=== PATIENT | female | born 1995 | race Caucasian/White ===

== ENCOUNTER 2017-02-17 11:44 | Emergency (ER) | payer MEDICAID ==
[2017-02-17] MEDS ORDERED: Sodium Chloride 0.9% 1,000 ML IV ONE (12:20)
--- NOTE | 2017-02-17 12:26 | C.PDOC ---
History Of Present Illness Patient is a 21 year old female who presents to the ER with a complaint of multiple episodes of vomiting, diarrhea, and abdominal pain since 8am this morning. Patient reports eating out at a restaurant last night. Denies any sick contact, fever, or back pain. Time Seen by Provider: 02/17/17 12:00 Chief Complaint (Nursing): Abdominal Pain History Per: Patient History/Exam Limitations: no limitations Onset/Duration Of Symptoms: Hrs (Since AM) Current Symptoms Are (Timing): Still Present Context: Food Location Of Pain/Discomfort: Other (Lower) Associated Symptoms: Vomiting, Diarrhea, Other (Abdominal pain). denies: Fever Past Medical History Reviewed: Historical Data, Nursing Documentation, Vital Signs Vital Signs: Last Vital Signs Temp 98.6 F 02/17/17 14:28 Pulse 87 02/17/17 14:28 Resp 18 02/17/17 14:28 BP 110/66 02/17/17 14:28 Pulse Ox 99 02/17/17 14:28 - Medical History PMH: No Chronic Diseases Surgical History: Appendectomy Family History: States: Unknown Family Hx - Social History Hx Tobacco Use: No Hx Alcohol Use: Yes Hx Substance Use: No - Immunization History Hx Tetanus Toxoid Vaccination: No Hx Influenza Vaccination: No Hx Pneumococcal Vaccination: No Review Of Systems Constitutional: Negative for: Fever Gastrointestinal: Positive for: Vomiting, Abdominal Pain (Lower), Diarrhea Musculoskeletal: Negative for: Back Pain Physical Exam - Physical Exam Appears: Well, Non-toxic Skin: Normal Color, Warm, Dry, No Rash Head: Atraumatic, Normacephalic Eye(s): bilateral: Normal Inspection Oral Mucosa: Moist Neck: Normal ROM, Supple Chest: Symmetrical, No Tenderness Cardiovascular: Rhythm Regular, No Friction Rub, No Murmur Respiratory: Normal Breath Sounds, No Rales, No Rhonchi, No Wheezing Gastrointestinal/Abdominal: Bowel Sounds (active), Soft, No Tenderness Back: Normal Inspection, No CVA Tenderness Extremity: Normal ROM, No Swelling Neurological/Psych: Oriented x3, Normal Speech, Normal Cognition, Normal Motor Gait: Steady ED Course And Treatment - Laboratory Results Result Diagrams: 02/17/17 12:55 02/17/17 12:55 O2 Sat by Pulse Oximetry: 100 (Room air) Pulse Ox Interpretation: Normal Progress Note: Blood work and urinalysis ordered. IV fluids, toradol IVP, and zofran IVP ordered. Medical Decision Making Medical Decision Making: On re-exam, the patient reports improvement of symptoms. Lungs are CTA, heart is RRR, Abdomen is soft, non-tender and tolerating PO well. ambulatory in the ED with steady gait. Follow up with the medical doctor within 1-2 days. return if worsened. Disposition - Disposition Referrals: Kumar Dickey [Medical Doctor] - Disposition: HOME/ ROUTINE Disposition Time: 14:12 Condition: IMPROVED Additional Instructions: Follow up with the medical doctor within 1-2 days. return if worsened. Prescriptions: Ondansetron ODT [Zofran ODT] 1 odt PO BID PRN #10 odt PRN Reason: Nausea/Vomiting Instructions: Gastroenteritis (ED) - Clinical Impression Clinical Impression: Gastroenteritis - Scribe Statement The provider has reviewed the documentation as recorded by the Scribjaciel Rios All medical record entries made by the Scribe were at my direction and personally dictated by me. I have reviewed the chart and agree that the record accurately reflects my personal performance of the history, physical exam, medical decision making, and the department course for this patient. I have also personally directed, reviewed, and agree with the discharge instructions and disposition.
[2017-02-17] MEDS ORDERED: Sodium Chloride 0.9% 250 ML IV ONE (12:43)
[2017-02-17 13:07] LABS: BASO # 0.1 K/uL (0.0-0.2); BASO % 0.6 % (0.0-2.0); EOS % 0.3 % (0.0-4.0); HEMATOCRIT 35.8 % (34.0-47.0); LYMPH # 1.1 K/uL (1.0-4.3); LYMPH % 7.2 % (20.0-40.0); MEAN CELL VOLUME 82.1 fL (81.0-99.0); MEAN CORPUSCULAR HEMOGLOBIN 26.6 pg (27.0-31.0); MEAN CORPUSCULAR HGB CONC 32.3 g/dL (33.0-37.0); MEAN PLATELET VOLUME 8.9 fL (7.2-11.7); MONO # 0.6 K/uL (0.0-0.8); PLATELET COUNT 300 K/uL (130-400); RED CELL DISTRIBUTION WIDTH 13.6 % (11.5-14.5); WHITE BLOOD COUNT 14.9 K/uL (4.8-10.8)
[2017-02-17 13:11] LABS: CHLORIDE 103 mmol/L (98-107); POTASSIUM 4.1 mmol/L (3.6-5.2); SODIUM 141 mmol/L (132-148)
[2017-02-17 13:14] LABS: ALB/GLOB RATIO 1.2 (1.0-2.1); ALKALINE PHOSPHATASE 44 U/L (38-126); ALT/SGPT 8 U/L (9-52); AST/SGOT 18 U/L (14-36); BILIRUBIN,TOTAL < 0.1 mg/dL (0.2-1.3); BLOOD UREA NITROGEN 10 mg/dL (7-17); CALCIUM 8.6 mg/dl (8.6-10.4); CARBON DIOXIDE 22 mmol/L (22-30); GFR AFRICAN-AMERICAN > 60; GLUCOSE,RANDOM 94 mg/dL (65-105); TOTAL PROTEIN 7.7 g/dL (6.3-8.3)
[2017-02-17 13:19] LABS: RBC URINE 2 /hpf (0-3); URINE BILIRUBIN NEGATIVE (NEGATIVE); URINE BLOOD NEGATIVE (NEGATIVE); URINE COLOR Yellow (YELLOW); URINE GLUCOSE (UA) NORMAL (Normal); URINE KETONE NEGATIVE (NEGATIVE); URINE LEUKOCYTE ESTERASE TRACE Leu/uL (Negative); URINE PROTEIN NEGATIVE (NEGATIVE); URINE UROBILINOGEN NORMAL mg/dL (0.2-1.0); WBC URINE 7 /hpf (0-5)
[2017-02-17 13:29] LABS: EOSINOPHIL 1 % (0-4); NEUTROPHIL 88 % (50-75); TOTAL CELLS COUNTED 100
[2017-02-17 14:30] VITALS: BP 110/66; PULSE 87; RESP 18; TEMP 98.6
[2017-02-17 18:11] VITALS: O2SAT 100
== END 2017-02-17 14:28 | disposition home or self-care (01) ==
LOC: C.ER 11:44
DX: K52.9 Noninfective gastroenteritis and colitis, unspecified (principal)
CPT/HCPCS: 80053; 81001; 83690; 84703; 85025; 87045; 87177; 87209; 87230; 96361; 96374; 96375; 99284; J1885; J2405; J7040

== ENCOUNTER 2017-04-11 16:33 | Emergency (ER) | payer MEDICAID ==
[2017-04-11 16:41] VITALS: TEMP 98.6; O2SAT 98
[2017-04-11] MEDS ORDERED: Albuterol-Ipratrop 3 mg / 0.5 (3 ml) UD IH STA (17:03)
--- NOTE | 2017-04-11 17:03 | C.PDOC ---
Time Seen by Provider: 04/11/17 16:50 Chief Complaint (Nursing): Shortness Of Breath Past Medical History Vital Signs: Last Vital Signs Temp 98.6 F 04/11/17 16:40 Pulse 104 H 04/11/17 16:40 Resp 20 04/11/17 16:40 BP 135/91 H 04/11/17 16:40 Pulse Ox 98 04/11/17 16:40 - Medical History PMH: Asthma Denies: Chronic Kidney Disease Surgical History: Appendectomy Family History: States: Unknown Family Hx - Social History Hx Tobacco Use: No Hx Alcohol Use: Yes Hx Substance Use: No - Immunization History Hx Tetanus Toxoid Vaccination: No Hx Influenza Vaccination: No Hx Pneumococcal Vaccination: No ED Course And Treatment O2 Sat by Pulse Oximetry: 98
[2017-04-11] MEDS ORDERED: Albuterol-Ipratrop 3 mg / 0.5 (3 ml) UD ONE ×2 (17:07→17:49)
--- NOTE | 2017-04-11 17:09 | C.PDOC ---
History Of Present Illness 21 year old female presents to the ED with complaints of asthma exacerbation for approximately two weeks, also intermittent chronic pain of the right wrist. Patient states initially experienced relief with albuterol treatments but now needs more frequent use for relief and takes medication for seasonal allergies. She also notes she sprained her wrist six months ago with occasional pain. Patient states she currently feels tight from asthma exacerbation and wrist pain is exacerbated when hyperflexed. She denies any recent trauma, lip or tongue swelling, or fever. Time Seen by Provider: 04/11/17 16:50 Chief Complaint (Nursing): Shortness Of Breath History Per: Patient History/Exam Limitations: no limitations Onset/Duration Of Symptoms: Intermittent Episodes (6 months of occasional right wrist pain ), Persistent (2 weeks of asthma exacerbation) Current Symptoms Are (Timing): Still Present Associated Symptoms: denies: Dyspnea, Cough, Fever, Chest Pain Recent travel outside of the [place]: No - Asthma History Current Asthma Therapy: Albuterol PMH Reviewed: Historical Data, Nursing Documentation, Vital Signs - Medical History PMH: Resp Disorders, MS Disorders Denies: Neuro Disorder, HEENT Problems, GI Disorders - Family History Family History: States: Unknown Family Hx - Immunization History Hx Tetanus Toxoid Vaccination: No Hx Influenza Vaccination: No Hx Pneumococcal Vaccination: No Review Of Systems Constitutional: Negative for: Fever, Chills, Sweats Cardiovascular: Positive for: Other (chest described as feeling tight ). Negative for: Chest Pain, Palpitations Respiratory: Negative for: Cough, Shortness of Breath Gastrointestinal: Negative for: Nausea, Vomiting, Abdominal Pain, Diarrhea Musculoskeletal: Positive for: Other (right wrist pain ) Pedatric Physical Exam - Physical Exam Appears: Non-toxic, No Acute Distress, Interacting Skin: Warm, Dry Head: Atraumatic Oral Mucosa: Moist Tongue: Normal Appearing, No Swelling Lips: Normal Appearing, No Swelling Throat: Normal, No Erythema, No Exudate Neck: Supple Chest: Symmetrical, No Deformity Cardiovascular: Rhythm Regular Respiratory: No Rales, No Rhonchi, No Stridor, Wheezing (occasional expiratory wheezing ) Gastrointestinal/Abdominal: Soft, No Tenderness, No Distention, No Guarding, No Rebound Extremity: Normal ROM, No Tenderness, Capillary Refill (good capillary refill), No Deformity, No Swelling, Other (right wrist is normal ) Neurological/Psych: Oriented x3 ED Course And Treatment O2 Sat by Pulse Oximetry: 98 (room air ) Pulse Ox Interpretation: Normal - Radiology CXR: Interpreted by Me CXR Interpretation: Yes: No Acute Disease - Other Rad R WRIST X-Ray: Interpreted by Me (NEG) Disposition Counseled Patient/Family Regarding: Studies Performed, Diagnosis, Need For Followup, Rx Given - Disposition Referrals: Pilar Hitchcock MD [Staff Provider] - YOUR,PMD [Other] Disposition: HOME/ ROUTINE Disposition Time: 17:48 Condition: IMPROVED Prescriptions: Albuterol 0.083% [Albuterol Sulfate 3 Ml] 3 ml IH Q4 #30 neb predniSONE [Prednisone] 60 mg PO DAILY #12 tab Instructions: Asthma (ED), Chronic Pain (ED) - Clinical Impression Clinical Impression: Asthma, Chronic wrist pain - Scribe Statement The provider has reviewed the documentation as recorded by the Scribe Christine Chase All medical record entries made by the Scribe were at my direction and personally dictated by me. I have reviewed the chart and agree that the record accurately reflects my personal performance of the history, physical exam, medical decision making, and the department course for this patient. I have also personally directed, reviewed, and agree with the discharge instructions and disposition.
--- NOTE | 2017-04-11 17:25 | RAD ---
HISTORY: COUGH COMPARISON: No prior. TECHNIQUE: Chest PA and lateral FINDINGS: LUNGS: No acute consolidation. PLEURA: No significant pleural effusion identified. No pneumothorax apparent. CARDIOVASCULAR: Normal. OSSEOUS STRUCTURES: There is a mild dextroscoliosis centered in the mid to lower thoracic region. This could be compensatory a levoscoliosis in the upper lumbar region. Consider followup dedicated scoliosis series. VISUALIZED UPPER ABDOMEN: Normal. OTHER FINDINGS: None. IMPRESSION: No acute cardiopulmonary disease. Scoliotic deformity present. Consider followup dedicated scoliosis series. Note this report was placed in PA review folder followup. Used
[2017-04-11 17:40] VITALS: RESP 16
--- NOTE | 2017-04-11 17:41 | RAD ---
PROCEDURE: Right wrist dated 04/11/2017 Four views of the right wrist performed HISTORY: chronic pain COMPARISON: None. FINDINGS: BONES: No evidence of acute displaced fracture nor dislocation. Osseous structures appear intact. No cortical destructive changes JOINTS: Joint spaces preserved. No evidence of significant osteoarthritis SOFT TISSUES: Soft tissues grossly unremarkable. No radiopaque foreign bodies OTHER FINDINGS: None. IMPRESSION: No evidence of acute displaced fracture nor dislocation.
[2017-04-11 18:10] VITALS: BP 112/68; PULSE 89
== END 2017-04-11 18:09 | disposition home or self-care (01) ==
LOC: C.ER 16:33
DX: J45.909 Unspecified asthma, uncomplicated (principal); G89.29 Other chronic pain; M25.531 Pain in right wrist